=== PATIENT | female | born 1995 | race Caucasian/White ===

== ENCOUNTER 2016-03-15 18:00 | Emergency (ER) | payer OTHER ==
--- NOTE | 2016-03-15 19:05 | ED CLINICAL REPORT ---
Clinical Report - Physicians/Mid Levels [facility] [address] [place] [address] 03/15/2016 18:00 Patient: RIGOBERTO TODD Time Seen: 18:50 Mar 15 2016. Arrived- By private vehicle. Historian- (fiance, friend). HISTORY OF PRESENT ILLNESS Chief Complaint: wants to know size/ weeks of . (Pt lmp jan 15, pos at home preg test in January, now deciding if she wants to keep and if conducive with her meds for siezure. No new sx. No abd pain, some back pain/ emesis in am. No vag bleeding. Seen at urgent care clinic sent to ER for us. NO complaints.). Similar symptoms previously: None. REVIEW OF SYSTEMS No nausea, vomiting, headache, cough or chest pain. All systems otherwise negative, except as recorded above. PAST HISTORY Problems: . Epilepsy. Additional Surgeries: no known surgeries. Medications: Celontin Oral. Diamox. Celontin. Depakote. Keppra. Allergies: No Known Drug Allergy. SOCIAL HISTORY Never smoker. No alcohol use. ADDITIONAL NOTES The nursing notes have been reviewed. PHYSICAL EXAM Vital Signs: 03/15/2016 18:10 BP: 140/92. HR: 100. RR: 18. O2 saturation: 100%. Temp: 97.9 F. Pain level now: 0/10. Appearance: Alert. HEENT: Normal external inspection. Neck: Neck supple. CVS: Heart sounds normal. Respiratory: No respiratory distress. Breath sounds normal. Abdomen: Soft and nontender. No mass. No abdominal tenderness. Neuro: Oriented X 3. LABS, X-RAYS, AND EKG Note - Tests: (US pelvic/ first tri: 8 weeks 5 days with + FHT, ovaries unremarkable.). PROGRESS AND PROCEDURES Course of Care: Pt in the er is very stable, no complaints. No distress. The meds she is currently on are rated from category c to x, and this was in detail discussed with you. Pt with no complaints. Stressed importance of making decision if she is going to keep at 8 weeks 5 days, and to have follow up for such. Discussed options for follow up . Patient is stable. The patient's symptoms are unchanged. Patient/family counseled. Disposition: Discharged. CLINICAL IMPRESSION . (complicated by polytherapy and seizure disorder). INSTRUCTIONS (8 weeks 5 days YOU are considered a high risk , and at this time are on polytherapy, mulitple medications that have many related risk factors for your fetus, it is your choice for your continuation of this or not, but the longer you wait the more complicated a possible or attempt at becomes given your medication regiment and your 8 week status, almost 9 as a female If you plan on keeping this Depakote needs [facility] High risk if you decide to go forward with the possibly at / [facility]). Warnings: Further evaluation is necessary. Follow-up with: Steve Woods MD, Obstetrics/Gynecology, , [facility], [address] [place] [address] (Electronically signed by Bernie Henely P.A.-C 03/15/2016 19:16)
--- NOTE | 2016-03-15 19:05 | ED CLINICAL REPORT ---
Clinical Report - Physicians/Mid Levels [facility] [address] [place] [address] 03/15/2016 18:00 Patient: RIGOBERTO TODD Time Seen: 18:50 Mar 15 2016. Arrived- By private vehicle. Historian- (fiance, friend). HISTORY OF PRESENT ILLNESS Chief Complaint: wants to know size/ weeks of . (Pt lmp jan 15, pos at home preg test in January, now deciding if she wants to keep and if conducive with her meds for siezure. No new sx. No abd pain, some back pain/ emesis in am. No vag bleeding. Seen at urgent care clinic sent to ER for us. NO complaints.). Similar symptoms previously: None. REVIEW OF SYSTEMS No nausea, vomiting, headache, cough or chest pain. All systems otherwise negative, except as recorded above. PAST HISTORY Problems: . Epilepsy. Additional Surgeries: no known surgeries. Medications: Celontin Oral. Diamox. Celontin. Depakote. Keppra. Allergies: No Known Drug Allergy. SOCIAL HISTORY Never smoker. No alcohol use. ADDITIONAL NOTES The nursing notes have been reviewed. PHYSICAL EXAM Vital Signs: 03/15/2016 18:10 BP: 140/92. HR: 100. RR: 18. O2 saturation: 100%. Temp: 97.9 F. Pain level now: 0/10. Appearance: Alert. HEENT: Normal external inspection. Neck: Neck supple. CVS: Heart sounds normal. Respiratory: No respiratory distress. Breath sounds normal. Abdomen: Soft and nontender. No mass. No abdominal tenderness. Neuro: Oriented X 3. LABS, X-RAYS, AND EKG Note - Tests: (US pelvic/ first tri: 8 weeks 5 days with + FHT, ovaries unremarkable.). PROGRESS AND PROCEDURES Course of Care: Pt in the er is very stable, no complaints. No distress. The meds she is currently on are rated from category c to x, and this was in detail discussed with you. Pt with no complaints. Stressed importance of making decision if she is going to keep at 8 weeks 5 days, and to have follow up for such. Discussed options for follow up . Patient is stable. The patient's symptoms are unchanged. Patient/family counseled. Disposition: Discharged. CLINICAL IMPRESSION . (complicated by polytherapy and seizure disorder). INSTRUCTIONS (8 weeks 5 days YOU are considered a high risk , and at this time are on polytherapy, mulitple medications that have many related risk factors for your fetus, it is your choice for your continuation of this or not, but the longer you wait the more complicated a possible or attempt at becomes given your medication regiment and your 8 week status, almost 9 as a female If you plan on keeping this Depakote needs to [facility] High risk if you decide to go forward with the possibly at / [facility]). Warnings: Further evaluation is necessary. Follow-up with: Steve Woods MD, Obstetrics/Gynecology, , [facility], [address] [place] [address] (Electronically signed by Bernie Henley P.A.-C 03/15/2016 19:16)
--- NOTE | 2016-03-15 19:05 | ED NURSING NOTES ---
Clinical Report - Nurses [facility] [address] [place] [address] 03/15/2016 18:00 Patient: RIGOBERTO TODD TRIAGE Triage time 18:10 Mar 15 2016. Acuity: LEVEL 4. Chief Complaint: (, wants ultrasound). BARRY COMA SCORE: [place] Coma Scale: 15- eyes open spontaneously (4); best verbal response- oriented x 4 (5); best motor response- obeys commands (6). --18:24 Mariangel Gurrola R.N. 18:10 03/15/16. BP: 140/92. HR: 100. RR: 18. O2 saturation: 100%. Temp: 97.9 F. Pain level now: 0/10. --18:24 Mariangel Gurrola R.N. Weight: 63.5 kg. Height/Length: 62 inches. BMI: 25.6. --18:22 Mariangel Gurrola R.N. Medications Keppra. --18:20 Mariangel Gurrola R.N. Depakote. --18:20 Mariangel Gurrola R.N. Celontin. --18:20 Mariangel Gurrola R.N. Diamox. --18:20 Mariangel Gurrola R.N. Celontin Oral. --18:21 Mariangel Gurrola R.N. Medication/allergy information source: the patient. --18:24 Mariangel Gurrola R.N. Allergies No Known Drug Allergy. --18:21 Mariangel Gurrola R.N. History Arrived by private vehicle. Historian: significant other and patient. Accompanied by friend. This started today. ( Patient unsure of LMP, possibly mid January. She has no cramping, no bleeding. Patient hx of epilepsy taking multiple meds, [facility]" Pt and s/o questioning whether to terminate.). No fever, weakness, cough, difficulty breathing or skin rash. Denies muscle aches. PAST MEDICAL HX: Last normal menstrual period- unsure of LMP. Sexual history - sexually active. Currently . Uncertain of dates. Considering termination. confirmed with home test. Has had no care. G 1. P 0. SOCIAL HX: Never smoker. No alcohol use or drug use. ABUSE ASSESSMENT: No report of abuse. SELF HARM ASSESSMENT: A self harm assessment was performed. The patient answered "no" to the question "Have you recently felt down, depressed, or hopeless?", "Have you noticed less interest or pleasure in doing things?", "Do you have thoughts of harming or killing yourself?", "Are you here because you tried to hurt yourself?", "Have you ever tried to hurt yourself before today?", "Have you recently had thoughts about harming or killing others?" and "Do you have any dangerous items in your possession?". FALL RISK ASSESSMENT: Fall risk assessment completed. No fall risk identified. NUTRITIONAL RISK ASSESSMENT: The nutritional risk assessment revealed no deficiencies. FUNCTIONAL ASSESSMENT: Functional assessment: no impairments noted. LEARNING NEEDS ASSESSMENT: The learning needs assessment revealed no barriers. SKIN INTEGRITY ASSESSMENT: Skin integrity risk assessment completed. No skin integrity risk identified. --18:24 Mariangel Gurrola R.N. PROBLEMS: Epilepsy. --18:21 Mariangel Gurrola R.N. ADDITIONAL SURGERIES: no known surgeries. Interventions ID band on patient. --18:24 Mariangel Gurrola R.N. PHYSICAL ASSESSMENT 18:25 03/15/16. GENERAL / NEURO / PSYCH: Alert. Oriented X 4. HEENT: Pupils equal, round and reactive to light. No facial asymmetry noted. Mucous membranes are pink. RESPIRATORY: Breath sounds within normal limits. CVS: Pulses within normal limits. GI / : Abdomen nontender. SKIN: Skin is warm and dry. Normal skin turgor. Skin not intact. --18:25 Mariangel Gurrola R.N. <<STRICKEN ENTRY-- 18:40 03/15/16. Ambulatory to room. GENERAL / NEURO / PSYCH: Alert. Oriented X 4. Appears in no acute distress. HEENT: Pupils equal, round and reactive to light. Mucous membranes are pink. RESPIRATORY: Breath sounds within normal limits. CVS: Pulses within normal limits. GI / : Abdomen nontender. SKIN: Skin intact. Skin is warm and dry. Normal skin turgor. --19:19 Mariangel Gurrola R.N. --END STRIKE>> Charted On Wrong Patient --19:19 Mariangel Gurrola R.N. NURSING PROGRESS NOTES 18:25 03/15/16. The initial plan of care for this patient includes an assessment with efforts to address the presence of pain. This plan of care was discussed with the patient. Reassurance given to the patient. Two patient identifiers checked. Side rails up x 1. Bed placed in lowest position. Brakes of bed on. Patient ready for evaluation. --18:25 Mariangel Gurrola R.N. 18:40 03/15/16. ( molecular technologist here for Pelvic US). --18:40 Mariangel Gurrola R.N. DISPOSITION / DISCHARGE 19:18 03/15/16. Departure time: 19:Mar 15 2016. Condition at departure: unchanged and stable. The goals identified in the patient's plan of care were met. No learning barriers present. Discharge instructions provided and reviewed with the patient. Patient and fitness worker verbalized understanding. Written instructions provided in Czech. The patient was discharged home and accompanied by fitness worker. She left the Emergency Department ambulatory and via private vehicle. Crocodile Farmer driving. --19:18 Mariangel Gurrola R.N. 19:18 03/15/16. BP: 140/74. HR: 80. RR: 16. O2 saturation: 100%. Temp: 98.0 F. Pain level now 0/10. --19:18 Mariangel Gurrola R.N. Locked/Released at 03/15/2016 19:24 by Mariangel Gurrola R.N.
--- NOTE | 2016-03-15 19:05 | ED ORDER SUMMARY ---
..... Patient: RIGOBERTO TODD OrderSheet [facility] VisitID: [id number] [address] [place] [address] 20y, F Registration Date/Time: 03/15/2016 ORDER SHEET Weight: 63.5 kg Allergies: No Known Drug Allergy GENERAL ORDERS: US OB 1st Trimester w Transvag () Urgent (18:31 03/15/2016 Nela Drake) (Ack 18:35 TBergley) (18:56 TBergley) MEDICATION ORDERS: IV FLUIDS: ORDER SHEET NOTES: [Electronically signed by Bernie Henley P.A.-C (19:16 03/15/2016)] [Electronically signed by Mariangel Gurrola R.N. (19:24 03/15/2016)] [Electronically locked/signed by Mariangel Gurrola R.N. (19:24 03/15/2016)]
--- NOTE | 2016-03-15 19:05 | ED ORDER SUMMARY ---
..... Patient: RIGOBERTO TODD OrderSheet [facility] VisitID: [id number] [address] [place] [address] 20y, F Registration Date/Time: 03/15/2016 ORDER SHEET Weight: 63.5 kg Allergies: No Known Drug Allergy GENERAL ORDERS: US OB 1st Trimester w Transvag () Urgent (18:31 03/15/2016 Nela Drake) (Ack 18:35 TBergley) (18:56 TBergley) MEDICATION ORDERS: IV FLUIDS: ORDER SHEET NOTES: [Electronically signed by Bernie Henley P.A.-C (19:16 03/15/2016)] [Electronically signed by Mariangel Gurrola R.N. (19:24 03/15/2016)] [Electronically locked/signed by Mariangel Gurrola R.N. (19:24 03/15/2016)]
--- NOTE | 2016-03-15 19:05 | ED NURSING NOTES ---
Clinical Report - Nurses [facility] [address] [place] [address] 03/15/2016 18:00 Patient: RIGOBERTO TODD TRIAGE Triage time 18:10 Mar 15 2016. Acuity: LEVEL 4. Chief Complaint: (, wants ultrasound). BARRY COMA SCORE: [place] Coma Scale: 15- eyes open spontaneously (4); best verbal response- oriented x 4 (5); best motor response- obeys commands (6). --18:24 Mariangel Gurrola R.N. 18:10 03/15/16. BP: 140/92. HR: 100. RR: 18. O2 saturation: 100%. Temp: 97.9 F. Pain level now: 0/10. --18:24 Mariangel Gurrola R.N. Weight: 63.5 kg. Height/Length: 62 inches. BMI: 25.6. --18:22 Mariangel Gurrola R.N. Medications Keppra. --18:20 Mariangel Gurrola R.N. Depakote. --18:20 Mariangel Gurrola R.N. Celontin. --18:20 Mariangel Gurrola R.N. Diamox. --18:20 Mariangel Gurrola R.N. Celontin Oral. --18:21 Mariangel Gurrola R.N. Medication/allergy information source: the patient. --18:24 Mariangel Gurrola R.N. Allergies No Known Drug Allergy. --18:21 Mariangel Gurrola R.N. History Arrived by private vehicle. Historian: significant other and patient. Accompanied by friend. This started today. ( Patient unsure of LMP, possibly mid January. She has no cramping, no bleeding. Patient hx of epilepsy taking multiple meds, [facility]" Pt and s/o questioning whether to terminate.). No fever, weakness, cough, difficulty breathing or skin rash. Denies muscle aches. PAST MEDICAL HX: Last normal menstrual period- unsure of LMP. Sexual history - sexually active. Currently . Uncertain of dates. Considering termination. confirmed with home test. Has had no care. G 1. P 0. SOCIAL HX: Never smoker. No alcohol use or drug use. ABUSE ASSESSMENT: No report of abuse. SELF HARM ASSESSMENT: A self harm assessment was performed. The patient answered "no" to the question "Have you recently felt down, depressed, or hopeless?", "Have you noticed less interest or pleasure in doing things?", "Do you have thoughts of harming or killing yourself?", "Are you here because you tried to hurt yourself?", "Have you ever tried to hurt yourself before today?", "Have you recently had thoughts about harming or killing others?" and "Do you have any dangerous items in your possession?". FALL RISK ASSESSMENT: Fall risk assessment completed. No fall risk identified. NUTRITIONAL RISK ASSESSMENT: The nutritional risk assessment revealed no deficiencies. FUNCTIONAL ASSESSMENT: Functional assessment: no impairments noted. LEARNING NEEDS ASSESSMENT: The learning needs assessment revealed no barriers. SKIN INTEGRITY ASSESSMENT: Skin integrity risk assessment completed. No skin integrity risk identified. --18:24 Mariangel Gurrola R.N. PROBLEMS: Epilepsy. --18:21 Mariangel Gurrola R.N. ADDITIONAL SURGERIES: no known surgeries. Interventions ID band on patient. --18:24 Mariangel Gurrola R.N. PHYSICAL ASSESSMENT 18:25 03/15/16. GENERAL / NEURO / PSYCH: Alert. Oriented X 4. HEENT: Pupils equal, round and reactive to light. No facial asymmetry noted. Mucous membranes are pink. RESPIRATORY: Breath sounds within normal limits. CVS: Pulses within normal limits. GI / : Abdomen nontender. SKIN: Skin is warm and dry. Normal skin turgor. Skin not intact. --18:25 Mariangel Gurrola R.N. <<STRICKEN ENTRY-- 18:40 03/15/16. Ambulatory to room. GENERAL / NEURO / PSYCH: Alert. Oriented X 4. Appears in no acute distress. HEENT: Pupils equal, round and reactive to light. Mucous membranes are pink. RESPIRATORY: Breath sounds within normal limits. CVS: Pulses within normal limits. GI / : Abdomen nontender. SKIN: Skin intact. Skin is warm and dry. Normal skin turgor. --19:19 Mariangel Gurrola R.N. --END STRIKE>> Charted On Wrong Patient --19:19 Mariangel Gurrola R.N. NURSING PROGRESS NOTES 18:25 03/15/16. The initial plan of care for this patient includes an assessment with efforts to address the presence of pain. This plan of care was discussed with the patient. Reassurance given to the patient. Two patient identifiers checked. Side rails up x 1. Bed placed in lowest position. Brakes of bed on. Patient ready for evaluation. --18:25 Mariangel Gurrola R.N. 18:40 03/15/16. ( surveillance camera technician here for Pelvic US). --18:40 Mariangel Gurrola R.N. DISPOSITION / DISCHARGE 19:18 03/15/16. Departure time: 19:Mar 15 2016. Condition at departure: unchanged and stable. The goals identified in the patient's plan of care were met. No learning barriers present. Discharge instructions provided and reviewed with the patient. Patient and servicer travel trailers verbalized understanding. Written instructions provided in Portuguese. The patient was discharged home and accompanied by servicer travel trailers. She left the Emergency Department ambulatory and via private vehicle. Broiler Manager driving. --19:18 Mariangel Gurrola R.N. 19:18 03/15/16. BP: 140/74. HR: 80. RR: 16. O2 saturation: 100%. Temp: 98.0 F. Pain level now 0/10. --19:18 Mariangel Gurrola R.N. Locked/Released at 03/15/2016 19:24 by Mariangel Gurrola R.N.
--- NOTE | 2016-03-15 19:24 | ED MED RECONCILIATION SUMMARY ---
Patient: RIGOBERTO TODD Medication Reconciliation Report [facility] VisitID: [id number] [address] [place] [address] 20y, F Registration Date/Time: 03/15/2016 Weight: 63.5 kg Height/Length: 62 in. BMI: 25.6 ALLERGIES: No Known Drug Allergy The patient's Home Medications are listed below: THE FOLLOWING MEDICATIONS NEED TO BE RECONCILED: Celontin Celontin Oral Depakote Diamox Keppra The source(s) of the original Home Medication information: patient The following Medications were given to the patient in the Emergency Department: None. The following Medications were prescribed to the patient: None.
--- NOTE | 2016-03-15 19:24 | ED DISCHARGE INSTRUCTIONS ---
Patient: RIGOBERTO TODD General Instructions [facility] VisitID: [id number] [place] [address] 20y, F Registration Date/Time: 03/15/2016 . (complicated by polytherapy and seizure disorder). INSTRUCTIONS (8 weeks 5 days YOU are considered a high risk , and at this time are on polytherapy, mulitple medications that have many related risk factors for your fetus, it is your choice for your continuation of this or not, but the longer you wait the more complicated a possible or attempt at becomes given your medication regiment and your 8 week status, almost 9 as a female If you plan on keeping this Depakote needs to [facility] High risk if you decide to go forward with the possibly at / [facility]). Warnings: Further evaluation is necessary. Follow-up with: Steve Woods MD, Obstetrics/Gynecology, , [facility], [address] [place] [address] ADDITIONAL INFORMATION Your exam today shows that you are . During , it is normal to develop tender swollen breasts, frequent urination and mild vaginal discharge. During the first three months, nausea is common. Guidelines For A Healthy : To ensure that your baby is born healthy there are certain things that you can do: When you feel tired, you should REST. This is especially true in the later months of . Your body needs more FLUIDS than you may be used to: You should drink 8-10 glasses of juice, milk or water. Eat well-balanced MEALS at regular intervals to supply your body with enough protein. You can expect a total weight gain of about 30 pounds during the . Do not try to diet or lose weight while you are . Because of the extra nutritional needs during , take one VITAMIN daily. Do not take any other MEDICINE during your (prescribed or [id number]) unless your doctor specifically recommends this. Many drugs can have harmful effects on the growing baby. If NAUSEA or VOMITING become a problem, avoid greasy and fried foods. Eat several smaller meals throughout the day rather than three large meals. If you SMOKE, you must stop. The nicotine you breathe in goes right to the baby. Stay away from ALCOHOL, even in moderate amounts. Daily drinking will harm your baby and can cause permanent brain damage. RECREATIONAL DRUGS are harmful, especially cocaine, crack, and heroin. Marijuana should also be avoided. If you were using recreational drugs or prescribed medicine when you found out that you were , talk to your doctor about possible effects on the fetus. Follow Up: Call to arrange for care. This can be provided by your family doctor, an juice standardizer ( specialist) or a primary care clinic. Get Prompt Medical Attention if any of the following occur: Vaginal bleeding Moderate or severe abdominal or back pain Excessive vomiting, unable to keep any fluids down for six hours Burning with urination Headache, dizziness or rapid weight gain You have been given the following additional information: , New Dx (Electronically signed by Bernie Henley P.A.-C 03/15/2016 19:16)
--- NOTE | 2016-03-15 19:24 | ED MAR SUMMARY ---
..... Medication Administration Record [facility] [address] [place] [id number] Patient: RIGOBERTO TODD Visit ID: [id number] 20y, F Weight: 63.5 kg Height/Length: 62 in BMI: 25.6 ALLERGIES: No Known Drug Allergy
--- NOTE | 2016-03-15 19:24 | ED MAR SUMMARY ---
..... Medication Administration Record [facility] [address] [place] [id number] Patient: RIGOBERTO TODD Visit ID: [id number] 20y, F Weight: 63.5 kg Height/Length: 62 in BMI: 25.6 ALLERGIES: No Known Drug Allergy
--- NOTE | 2016-03-15 19:24 | ED MED RECONCILIATION SUMMARY ---
Patient: RIGOBERTO TODD Medication Reconciliation Report [facility] VisitID: [id number] [address] [place] [place] [address] 20y, F Registration Date/Time: 03/15/2016 Weight: 63.5 kg Height/Length: 62 in. BMI: 25.6 ALLERGIES: No Known Drug Allergy The patient's Home Medications are listed below: THE FOLLOWING MEDICATIONS NEED TO BE RECONCILED: Celontin Celontin Oral Depakote Diamox Keppra The source(s) of the original Home Medication information: patient The following Medications were given to the patient in the Emergency Department: None. The following Medications were prescribed to the patient: None.
--- NOTE | 2016-03-15 19:24 | ED DISCHARGE INSTRUCTIONS ---
Patient: RIGOBERTO TODD General Instructions [facility] VisitID: [id number] [place] [address] 20y, F Registration Date/Time: 03/15/2016 . (complicated by polytherapy and seizure disorder). INSTRUCTIONS (8 weeks 5 days YOU are considered a high risk , and at this time are on polytherapy, mulitple medications that have many related risk factors for your fetus, it is your choice for your continuation of this or not, but the longer you wait the more complicated a possible or attempt at becomes given your medication regiment and your 8 week status, almost 9 as a female If you plan on keeping this Depakote needs to be discontinued immediately [facility] High risk if you decide to go forward with the possibly at / [facility]). Warnings: Further evaluation is necessary. Follow-up with: Steve Woods MD, Obstetrics/Gynecology, , [facility], [address] [place] [address] ADDITIONAL INFORMATION Your exam today shows that you are . During , it is normal to develop tender swollen breasts, frequent urination and mild vaginal discharge. During the first three months, nausea is common. Guidelines For A Healthy : To ensure that your baby is born healthy there are certain things that you can do: When you feel tired, you should REST. This is especially true in the later months of . Your body needs more FLUIDS than you may be used to: You should drink 8-10 glasses of juice, milk or water. Eat well-balanced MEALS at regular intervals to supply your body with enough protein. You can expect a total weight gain of about 30 pounds during the . Do not try to diet or lose weight while you are . Because of the extra nutritional needs during , take one VITAMIN daily. Do not take any other MEDICINE during your (prescribed or [id number]) unless your doctor specifically recommends this. Many drugs can have harmful effects on the growing baby. If NAUSEA or VOMITING become a problem, avoid greasy and fried foods. Eat several smaller meals throughout the day rather than three large meals. If you SMOKE, you must stop. The nicotine you breathe in goes right to the baby. Stay away from ALCOHOL, even in moderate amounts. Daily drinking will harm your baby and can cause permanent brain damage. RECREATIONAL DRUGS are harmful, especially cocaine, crack, and heroin. Marijuana should also be avoided. If you were using recreational drugs or prescribed medicine when you found out that you were , talk to your doctor about possible effects on the fetus. Follow Up: Call to arrange for care. This can be provided by your family doctor, an visual supervisor ( specialist) or a primary care clinic. Get Prompt Medical Attention if any of the following occur: Vaginal bleeding Moderate or severe abdominal or back pain Excessive vomiting, unable to keep any fluids down for six hours Burning with urination Headache, dizziness or rapid weight gain You have been given the following additional information: , New Dx (Electronically signed by Bernie Henley P.A.-C 03/15/2016 19:16)
--- NOTE | 2016-03-15 21:14 | DIAGNOSTIC IMAGING REPORT ---
PROCEDURE: US OB 1ST TRIMESTER W/TRANSVAG INDICATION: Check viability. TECHNIQUE: [place] scale, color, and spectral Doppler transabdominal and endovaginal sonographic images of the first trimester gravid uterus were obtained. COMPARISON: None. FINDINGS: TRANSABDOMINAL SCANS: Early intrauterine gestational sac. Maternal kidneys are normal. TRANSVAGINAL SCANS: Early viable intrauterine with cardiac activity (166). [place]-rump length 2.1 cm (8.7 weeks). Normal fluid and cervix length (3.9 cm). Placenta circumferential. There is a 1.6 x 0.6 cm subchorionic hemorrhage. IMPRESSION: 1. Early viable intrauterine at 8.7 weeks menstrual age (+/- 0.7 weeks). AMANDA is 10/20/2016. 2. There is a small 1.6 x 0.6 cm subchorionic hemorrhage.
--- NOTE | 2016-03-15 21:14 | DIAGNOSTIC IMAGING REPORT ---
PROCEDURE: US OB 1ST TRIMESTER W/TRANSVAG INDICATION: Check viability. TECHNIQUE: [place] scale, color, and spectral Doppler transabdominal and endovaginal sonographic images of the first trimester gravid uterus were obtained. COMPARISON: None. FINDINGS: TRANSABDOMINAL SCANS: Early intrauterine gestational sac. Maternal kidneys are normal. TRANSVAGINAL SCANS: Early viable intrauterine with cardiac activity (166). [place]-rump length 2.1 cm (8.7 weeks). Normal fluid and cervix length (3.9 cm). Placenta circumferential. There is a 1.6 x 0.6 cm subchorionic hemorrhage. IMPRESSION: 1. Early viable intrauterine at 8.7 weeks menstrual age (+/- 0.7 weeks). AMANDA is 10/20/2016. 2. There is a small 1.6 x 0.6 cm subchorionic hemorrhage.
== END 2016-03-15 19:24 | disposition home or self-care (01) ==
LOC: ED SRH 18:00
DX: O99.351 Diseases of the nervous system complicating pregnancy, first trimester (principal); G40.909 Epilepsy, unspecified, not intractable, without status epilepticus; Z3A.08 8 weeks gestation of pregnancy; Z79.899 Other long term (current) drug therapy